=== PATIENT | female | born 1965 | race African-American/Black ===

== ENCOUNTER 2022-03-26 18:12 | Inpatient (IN) | payer OTHER ==
[~2022-03-26] VITALS: Ht 154.9 cm; Wt 79.4 kg
[2022-03-26 19:36] LABS: BASOPHILS % 0.2 % (0.0-2.0); EOSINOPHILS % 0.4 % (0.0-5.0); HEMATOCRIT. 33.3 % (36.0-48.0); HEMOGLOBIN. 11.1 g/dL (12.0-16.0); LYMPHOCYTES % 31.6 % (20.0-50.0); MEAN CORPUSCULAR HEMOGLOBIN 30.5 pg (28.0-32.0); MEAN CORPUSCULAR VOLUME 91.6 fL (81.0-99.0); MEAN PLATELET VOLUME 8.7 fl (7.4-10.4); MONOCYTES % 8.4 % (2.0-8.0); NEUTROPHILS % 59.4 % (40.0-76.0); PLATELET 389 x1000/uL (130-400); RED BLOOD CELL COUNT 3.64 mill/uL (4.2-5.4); RED CELL DISTRIBUTION WIDTH 14.1 % (11.6-14.6)
[2022-03-26 19:56] LABS: CHLORIDE 104 mEq/L (98-107)
[2022-03-26] MEDS ORDERED: TICAGRELOR 90 MG TABLET PO SCH (21:15)
[2022-03-27] VITALS (7 sets, daily range): BP systolic 100–114; BP diastolic 58–71
[2022-03-27] MEDS: FUROSEMIDE 40MG/4ML VIAL IVP SCH (08:07)
[2022-03-27] MEDS ORDERED: ATOR40TA70 PO ×2 (10:40→13:07)
[2022-03-27] MEDS ORDERED: METO-411 PO ×2 (10:40→12:44)
[2022-03-27] MEDS ORDERED: INSU100V51 (10:40)
[2022-03-27] MEDS ORDERED: TICA90TA PO ×2 (10:40→13:03)
[2022-03-27] MEDS ORDERED: NITR0.4T49 SL (10:40)
[2022-03-27] MEDS ORDERED: ASPI-1497 PO (10:40)
[2022-03-27] MEDS ORDERED: INSU100V37 SQ (10:40)
[2022-03-27] MEDS ORDERED: DEXTROSE 50% WATER 50ML SYRINGE IV PRN (11:45)
[2022-03-27] MEDS: BLOOD SUGAR DIAGNOSTIC STRIP TEST SCH ×3 (11:55→19:32)
[2022-03-27] MEDS: INSULIN LISPRO 100 UNITS/ML SUBCUT SCH ×3 (12:03→21:47)
[2022-03-27] MEDS ORDERED: FERR325T6 PO (12:43)
[2022-03-27] MEDS: ASPIRIN 81MG EC TABLET PO SCH (12:43)
[2022-03-27] MEDS ORDERED: COR3 PO (12:46)
[2022-03-27] MEDS ORDERED: SITA100T11 PO (12:46)
[2022-03-27] MEDS ORDERED: ASCO250T22 PO (13:04)
[2022-03-27] MEDS ORDERED: GABA-529 PO (13:05)
[2022-03-27] MEDS ORDERED: DOCU-150 PO (13:06)
[2022-03-27] MEDS ORDERED: MORP15TA54 PO (13:06)
[2022-03-27] MEDS ORDERED: DIAZ5TAB4 PO (13:08)
[2022-03-27] MEDS ORDERED: HYDR-4009 MT (13:08)
[2022-03-27] MEDS ORDERED: SERT-112 PO (13:09)
[2022-03-27] MEDS ORDERED: TRAZ-252 PO (13:10)
[2022-03-27] MEDS: TICAGRELOR 90 MG TABLET PO SCH ×2 (14:42→21:46)
[2022-03-27] MEDS ORDERED: ATORVASTATIN CALCIUM 40MG TABLET PO SCH (21:00)
[2022-03-27] MEDS: METOPROLOL TARTRATE 100MG TABLET PO SCH (21:46)
[2022-03-27] MEDS: INSULIN GLARGINE 100 UNITS/ML SUBCUT SCH (21:48)
[2022-03-27] MEDS ORDERED: INSULIN GLARGINE 100 UNITS/ML SUBCUT SCH (22:00)
[2022-03-28] VITALS: BP 105/63
[2022-03-28 04:00] VITALS: BP 102/65
[2022-03-28] MEDS: INSULIN LISPRO 100 UNITS/ML SUBCUT SCH ×2 (05:08→12:33)
[2022-03-28] MEDS: BLOOD SUGAR DIAGNOSTIC STRIP TEST SCH ×2 (05:08→12:33)
[2022-03-28 06:51] LABS: BASOPHILS % 0.3 % (0.0-2.0); EOSINOPHILS % 0.6 % (0.0-5.0); HEMOGLOBIN. 10.7 g/dL (12.0-16.0); LYMPHOCYTES % 35.8 % (20.0-50.0); MEAN CORPUSCULAR HEMOGLOBIN 31.1 pg (28.0-32.0); MEAN CORPUSCULAR VOLUME 90.1 fL (81.0-99.0); MEAN PLATELET VOLUME 8.9 fl (7.4-10.4); MONOCYTES % 8.4 % (2.0-8.0); NEUTROPHILS % 54.9 % (40.0-76.0); PLATELET 348 x1000/uL (130-400); RED BLOOD CELL COUNT 3.44 mill/uL (4.2-5.4); RED CELL DISTRIBUTION WIDTH 13.8 % (11.6-14.6)
[2022-03-28] MEDS ORDERED: LIDOCAINE HCL/PF 1% 10 MG/ML 5ML VIAL ONE (07:45)
[2022-03-28] MEDS ORDERED: FENTANYL CITRATE/PF 50MCG/ML 2ML VIAL ONE (07:45)
[2022-03-28] MEDS ORDERED: MIDAZOLAM HCL 2 MG/2 ML VIAL ONE (07:45)
[2022-03-28] MEDS ORDERED: IODIXANOL 320MG/ML 100 ML BOTTLE IV ONE (07:46)
[2022-03-28] MEDS ORDERED: VERAPAMIL HCL 2.5 MG/1 ML 2ML VIAL IV ONE (07:46)
[2022-03-28] MEDS ORDERED: HEPARIN 1000 UNITS/ML 10ML ONE (07:47)
[2022-03-28 07:56] LABS: CHLORIDE 107 mEq/L (98-107)
[2022-03-28 08:00] VITALS: BP 115/76
[2022-03-28 08:09] LABS: HDL CHOLESTEROL 32 mg/dL (40-59); LDL CHOLESTEROL 65 mg/dL (5-100)
[2022-03-28] MEDS ORDERED: DIPHENHYDRAMINE 50MG/ML VIAL ONE (08:13)
[2022-03-28] MEDS: FUROSEMIDE 40MG/4ML VIAL IVP SCH (08:49)
[2022-03-28] MEDS: METOPROLOL TARTRATE 100MG TABLET PO SCH (08:49)
[2022-03-28] MEDS: TICAGRELOR 90 MG TABLET PO SCH (08:49)
[2022-03-28] MEDS: ASPIRIN 81MG EC TABLET PO SCH (08:49)
[2022-03-28] MEDS ORDERED: ATROPINE SULFATE 1MG/10ML SYR IV PRN (09:00)
[2022-03-28] MEDS ORDERED: ACETAMINOPHEN 325MG TABLET PO PRN (09:00)
[2022-03-28] MEDS: INSULIN GLARGINE 100 UNITS/ML SUBCUT SCH (10:00)
[2022-03-28 12:00] VITALS: BP 101/70
[2022-03-28] MEDS ORDERED: ISOS10TA53 MT (13:22)
[2022-03-28 14:26] VITALS: BP 108/75
[2022-03-28 16:00] VITALS: BP 110/85
== END 2022-03-28 16:20 | disposition home or self-care (01) | DRG 287 ==
LOC: ER 18:12 → MICUSO 21:21 → EDBEDREQ 21:46 → ENRESERV 23:13 → 8WST 03-27 01:44
PROVIDERS: ADMIT Internal Medicine; ATTEND Internal Medicine
PROC: 4A023N7 Measurement of Cardiac Sampling and Pressure, Left Heart, Percutaneous Approach (ICD-10-PCS; principal; 2022-03-28)
PROC: B211YZZ Fluoroscopy of Multiple Coronary Arteries using Other Contrast (ICD-10-PCS; 2022-03-28)
PROC: B215YZZ Fluoroscopy of Left Heart using Other Contrast (ICD-10-PCS; 2022-03-28)
DX: I25.110 Atherosclerotic heart disease of native coronary artery with unstable angina pectoris (principal); I50.22 Chronic systolic (congestive) heart failure; E11.65 Type 2 diabetes mellitus with hyperglycemia; I11.0 Hypertensive heart disease with heart failure; E66.9 Obesity, unspecified; Z20.822 Contact with and (suspected) exposure to COVID-19; Z68.33 Body mass index [BMI] 33.0-33.9, adult; Z96.659 Presence of unspecified artificial knee joint; Z95.5 Presence of coronary angioplasty implant and graft; I25.2 Old myocardial infarction; Z98.891 History of uterine scar from previous surgery
CPT/HCPCS: 36415; 71045; 80048; 80053; 80061; 82962; 83880; 84484; 85025; 87426; 93005; 93306; 93458; 99285; C1769; C1887; C1893; J1200; J1644; J1815; J1940; J2250; J3010; J3490; Q9967; J8499